=== PATIENT | female | born 1960 | race Caucasian/White ===

== ENCOUNTER 2023-03-03 15:52 | Emergency (ER) | payer BC | END 2023-03-03 18:38 | disposition home or self-care (01) | LOC: ERS 15:52 | DX: M25.571 Pain in right ankle and joints of right foot (principal); I10 Essential (primary) hypertension; Z79.899 Other long term (current) drug therapy ==

== ENCOUNTER 2023-04-11 14:21 | Emergency (ER) | payer BC | END 2023-04-11 15:49 | disposition left against medical advice (07) | LOC: ERS 14:21 | DX: Z53.21 Procedure and treatment not carried out due to patient leaving prior to being seen by health care provider (principal) ==

== ENCOUNTER 2023-07-27 13:08 | Outpatient (CLI) | payer BC | END 2023-07-27 13:09 | disposition home or self-care (01) | LOC: SCSMRI 13:08 | PROVIDERS: ATTEND Family Medicine | DX: M47.816 Spondylosis without myelopathy or radiculopathy, lumbar region (principal); M43.8X6 Other specified deforming dorsopathies, lumbar region | CPT/HCPCS: 72148 ==